=== PATIENT | female | born 1995 | race Caucasian/White ===

== ENCOUNTER 2024-09-12 | Emergency (ER) | payer SELFPAY ==
[~2024-09-12] VITALS: Ht 152.4 cm; Wt 100.0 kg
[2024-09-12 00:01] VITALS: BP 115/78; PULSE 92; RESP 18; TEMP 36.5; O2SAT 95
[2024-09-12] MEDS ORDERED: TETANUS, DIPHTHERIA, PERTUSSIS VAC/PF 0.5ML (>10YR OLD) IM ONE (00:45)
== END 2024-09-12 01:07 | disposition left against medical advice (07) ==
LOC: ER
DX: R58 Hemorrhage, not elsewhere classified (principal); W55.03XA Scratched by cat, initial encounter; Y93.89 Activity, other specified; Y92.89 Other specified places as the place of occurrence of the external cause; Y99.8 Other external cause status
CPT/HCPCS: 99283

== ENCOUNTER 2024-09-15 10:08 | Emergency (ER) | payer SELFPAY ==
[~2024-09-15] VITALS: Ht 152.4 cm; Wt 99.7 kg
[2024-09-15 10:16] VITALS: O2SAT 98
[2024-09-15] MEDS ORDERED: AMOX1TAB16 PO (10:58)
[2024-09-15 11:47] VITALS: BP 133/78; PULSE 78; RESP 18; TEMP 37.1; O2SAT 98
[2024-09-15] MEDS: BACITRACIN ZINC OINT UDPKT TOP ONE (11:49)
== END 2024-09-15 11:51 | disposition home or self-care (01) ==
LOC: ER 10:08
DX: S51.852A Open bite of left forearm, initial encounter (principal); W55.01XA Bitten by cat, initial encounter; Y93.89 Activity, other specified; Y92.89 Other specified places as the place of occurrence of the external cause; Y99.8 Other external cause status
CPT/HCPCS: 99283